=== PATIENT | male | born 1975 | race Caucasian/White ===

== ENCOUNTER 2025-01-27 15:07 | Emergency (ER) | payer MEDICAID ==
[~2025-01-27] VITALS: Ht 185.4 cm; Wt 72.6 kg
[2025-01-27] MEDS ORDERED: Ketorolac Tromethamine 30mg Vial IM ONE (15:50)
[2025-01-27] MEDS ORDERED: CYCL10 PO (17:18)
[2025-01-27] MEDS ORDERED: IBUP600 PO (17:18)
[2025-01-27] MEDS ORDERED: FAMO20 PO (17:18)
== END 2025-01-27 17:25 | disposition home or self-care (01) ==
LOC: ER 15:07
DX: M75.41 Impingement syndrome of right shoulder (principal); Z88.0 Allergy status to penicillin; Z59.89 Other problems related to housing and economic circumstances
CPT/HCPCS: 96372; 99283-25; A9270; J1885